=== PATIENT | female | born 1965 | race Caucasian/White ===

== ENCOUNTER 2016-05-20 12:38 | Emergency (ER) | payer BC ==
[2016-05-20] MEDS ORDERED: HYDROmorphone 1 MG/ML Syringe IM ONE (14:00)
[2016-05-20] MEDS ORDERED: Ondansetron 4 MG Tab.DIS PO ONE (14:00)
--- NOTE | 2016-05-20 14:03 | EDM.PDOC ---
ED HPI GENERAL MEDICAL PROBLEM - General Chief Complaint: General Stated Complaint: ADMIT FROM CLINIC, GALLBLADDER Time Seen by Provider: 05/20/16 13:50 Source of Information: Reports: Patient, Family, RN notes reviewed History Limitations: Reports: No limitations - History of Present Illness INITIAL COMMENTS - FREE TEXT/NARRATIVE: 50-year-old female presents emergency department day complaint of abdominal pain she states she's really noticed the pain after eating pain is so intense now that any amount of liquid or food will cause pain it is predominantly in the right upper quadrant she still passing gas she is belching denies any fevers shortness of breath or chest pain does have nausea history of abdominal surgeries includes laparoscopic for endometriosis Right Middle Abdominal Pain Score (Numeric/FACES): 5 - Related Data Allergies Allergy/AdvReac Type Severity Reaction Status Date / Time cephalexin Allergy Hives Verified 05/20/16 13:17 erythromycin base Allergy Hives Verified 05/20/16 13:17 nitrofurantoin Allergy Hives Verified 05/20/16 13:17 macrocrystalline [From Macrodantin] Penicillins Allergy Hives Verified 05/20/16 13:17 quetiapine fumarate Allergy Hives Verified 05/20/16 13:17 [From Seroquel] Sulfa (Sulfonamide Allergy Hives Verified 05/20/16 13:17 Antibiotics) tetracycline Allergy Hives Verified 05/20/16 13:17 Home Meds: Home Meds ALPRAZolam [Xanax XR] 1 mg PO DAILY 05/01/15 [History] Past Medical History [employer] History: Reports: Endometriosis Psychiatric History: Reports: Anxiety - Past Surgical History HEENT Surgical History: Reports: Tonsillectomy Social & Family History - Family History Family Medical History: Unobtainable - Tobacco Use Smoking Status *Q: Never Smoker Second Hand Smoke Exposure: No - Caffeine Use Caffeine Use: Reports: None - Recreational Drug Use Recreational Drug Use: No ED ROS GENERAL - Review of Systems Review Of Systems: See Below Constitutional: Reports: no symptoms HEENT: Reports: No symptoms Respiratory: Reports: No Symptoms Cardiovascular: Reports: No symptoms GI/Abdominal: Reports: Abdominal pain, Flatus, Nausea. Denies: Constipation, Diarrhea, Vomiting : Reports: no symptoms Musculoskeletal: Reports: no symptoms Skin: Reports: no symptoms ED EXAM, GENERAL - Physical Exam Exam: See Below Free Text/Narrative:: General: Female, not in any distress, alert and oriented x3 HEENT: head is atraumatic normocephalic, eyes pupils equal round reactive to light, sclera clear no conjunctivitis appreciated. Ears tympanic membranes clear and saldana landmarks and light reflex are present bilaterally canals are clear. Nose no septal deviation, nares are clear, no blood present. Mouth mucosa is moist and pink no erythema or exudate noted in soft palate, tongue is midline uvula is midline, dentition is intact. Neck: Supple no thyromegaly no tracheal deviation. Nodes: Cervical nodes subclavicular nodes nontender no palpable lymphadenopathy noted. Lungs: clear to auscultation bilaterally with symmetrical respirations, no adventitious noise appreciated. CV: Regular rate and rhythm S1 and S2 appreciated no murmurs rubs or gallops noted. Abdomen: Soft, tender to palpation right upper quadrant, positive Calvillo's sign , no palpable masses or organomegaly appreciated, no distention no guarding bowel sounds are present, . Neuro: Cranial nerves II through XII grossly intact Skin: Warm and dry, intact Extremities: No lower extremity edema appreciated, Course - Vital Signs Last Recorded V/S: Last Vital Signs Temp 99.9 F 05/20/16 15:15 Pulse 96 05/20/16 15:15 Resp 16 05/20/16 15:15 BP 130/88 05/20/16 15:15 Pulse Ox 95 05/20/16 15:15 - Orders/Labs/Meds Orders: Active Orders 24 hr Category Date Time Status Abdomen Ltd [US] Urgent Exams 05/20/16 13:59 Ordered Labs: Laboratory Tests 05/20/16 05/20/16 05/20/16 Range/Units 14:09 14:09 14:09 WBC 11.4 H (4.5-11.0) K/uL RBC 4.95 (3.30-5.50) M/uL Hgb 14.7 (12.0-15.0) g/dL Hct 43.3 (36.0-48.0) % MCV 88 (80-98) fL MCH 30 (27-31) pg MCHC 34 (32-36) % Plt Count 298 (150-400) K/uL Neut % (Auto) 82 H (36-66) % Lymph % (Auto) 10 L (24-44) % Blair % (Auto) 7 H (2-6) % Eos % (Auto) 2 (2-4) % Baso % (Auto) 0 (0-1) % Sodium 146 (140-148) mmol/L Potassium 4.1 (3.6-5.2) mmol/L Chloride 109 H (100-108) mmol/L Carbon Dioxide 26 (21-32) mmol/L Anion Gap 15.1 H (5.0-14.0) mmol/L BUN 8 (7-18) mg/dL Creatinine 0.9 (0.6-1.0) mg/dL Est Cr Clr Drug Dosing 55.80 mL/min Estimated GFR (MDRD) > 60 (>60) Glucose 100 (74-106) mg/dL Lactic Acid 1.2 (0.4-2.0) mmol/L Calcium 8.0 L (8.5-10.1) mg/dL Total Bilirubin 0.4 (0.2-1.0) mg/dL AST 16 (15-37) U/L ALT 25 (12-78) U/L Alkaline Phosphatase 79 (46-116) U/L Total Protein 7.4 (6.4-8.2) g/dL Albumin 3.9 (3.4-5.0) g/dL Globulin 3.5 (2.3-3.5) g/dL Albumin/Globulin Ratio 1.1 L (1.2-2.2) Lipase 408 H (73-393) U/L Meds: Medications Discontinued Medications Generic Name Dose Route Start Last Admin Trade Name Diegoq PRN Reason Stop Dose Admin Hydromorphone HCl 1 mg 05/20/16 14:00 05/20/16 14:08 Dilaudid IM 05/20/16 14:01 1 mg ONETIME ONE Administration Ondansetron HCl 4 mg 05/20/16 14:00 05/20/16 14:09 Zofran Odt PO 05/20/16 14:01 4 mg ONETIME ONE Administration Departure - Departure Time of Disposition: 15:24 Disposition: Home, Self-Care 01 Condition: good Clinical Impression: RUQ pain Forms: ED Department Discharge Additional Instructions: Recommend MiraLax one capful per day until loose stools, followup with your primary care provider upon return to home - My Orders Last 24 Hours: My Active Orders 05/20/16 13:59 Abdomen Ltd [US] Urgent - Assessment/Plan Last 24 Hours: My Active Orders 05/20/16 13:59 Abdomen Ltd [US] Urgent Plan: Assessment Acuity = acute Site and laterality = right upper quadrant pain Etiology = probably related to bowel gas and stool Manifestations = none Location of injury = home Lab values = CBC, CMP unremarkable ultrasound is negative for any gallbladder disease but does show large amount of gas and stool in the upper quadrants of the abdomen Plan Recommend MiraLax one capful per day until loose stools, followup with primary care upon return home if no improvement Patient was in agreement with the plan all questions were answered, they were instructed to return to the emergency department or call for worsening symptoms. This note was dictated using [employer] voice recognition software please call with any questions.
[2016-05-20 15:16] VITALS: BP 130/88
== END 2016-05-20 15:33 | disposition home or self-care (01) ==
LOC: JP.ED 12:38
DX: R10.11 Right upper quadrant pain (principal); F41.9 Anxiety disorder, unspecified; Z79.899 Other long term (current) drug therapy; Z98.890 Other specified postprocedural states; Z88.0 Allergy status to penicillin; Z88.1 Allergy status to other antibiotic agents; Z88.2 Allergy status to sulfonamides; Z88.8 Allergy status to other drugs, medicaments and biological substances
CPT/HCPCS: 36415; 76705; 80053; 83605; 83690; 85025; 96372; 99284; A9270; J1170